=== PATIENT | male | born 1940 | race Caucasian/White ===

== ENCOUNTER 2021-09-02 09:09 | Emergency (ER) | payer MEDICARE ==
[~2021-09-02] VITALS: Ht 175.3 cm; Wt 72.7 kg
--- NOTE | 2021-09-02 09:58 | RAD ---
PROCEDURE: XR CHEST 1V.09/02/2021 9:55 AM REASON FOR STUDY: Reason: soa / Spl. Instructions: / History: . COMPARISON: None. FINDINGS: There are calcifications present bilaterally that may relate to previous granulomatous infe ction. The lungs appear hyperinflated. No acute infiltrate or effusion is seen. Heart size is normal. IMPRESSION: COPD. No apparent acute abnormality. Electronically signed by: Juaquin Bhatti Jr., MD (09/02/2021 9:56 AM) [facility]ENTERBethany
--- NOTE | 2021-09-02 10:09 | ED.ADGEN ---
Past Medical History Additional Past Medical Histor: BPH Past Surgical History: No Surgical History Smoking Status: Former Smoker Alcohol Use: None General Adult EDM: Chief Complaint: SHORTNESS OF BREATH HPI: HPI: Patient is a 81 year old male coming in via EMS from nursing facility. Patient has no complaints and is unsure why he was brought in. Per nursing report he was a little more altered this morning and had an O2 sat of 80% of breakfast. Patient has a history of COPD but does not use daily oxygen. Review of Systems: Review of Systems: All other systems within normal limits except for as noted in the HPI Allergies: Allergies: Allergies Coded Allergies Type Severity Reaction Last Updated Verified No Known Drug Allergies 09/02/21 No Physical Exam: PE: Constitutional: Well developed, well nourished, no acute distress, non-toxic appearance. [] HENT: Normocephalic, atraumatic, bilateral external ears normal, nose normal. [] Eyes: PERRLA, conjunctiva normal, no discharge. [] Neck: No rigidity, supple, no stridor. [] Cardiovascular: Regular rate and rhythm, brisk cap refill [] Lungs & Thorax: Non labored symmetric respirations, no tachypnea or respiratory distress [] Abdomen: Soft, nondistended. Skin: Warm, dry, no erythema, no rash. [] Back: Unremarkable Extremities: No deformities, range of motion grossly intact, no lower extremity edema [] Neurologic: Alert and oriented X 3, no focal deficits noted. [] Psychologic: Affect normal, judgement normal, mood normal. [] Current Patient Data: Labs: Laboratory Tests Test 09/02/21 10:45 09/02/21 11:37 09/02/21 12:25 White Blood Count 8.0 x10^3/uL (4.0-11.0) Red Blood Count 4.64 x10^6/uL (4.30-5.70) Hemoglobin 15.1 g/dL (13.0-17.5) Hematocrit 44.2 % (39.0-53.0) Mean Corpuscular Volume 95 fL (79-100) Mean Corpuscular Hemoglobin 33 pg (25-35) Mean Corpuscular Hemoglobin Concent 34 g/dL (31-37) Red Cell Distribution Width 14.1 % (11.5-14.5) Platelet Count 174 x10^3/uL (140-400) Neutrophils (%) (Auto) 67 % (31-73) Lymphocytes (%) (Auto) 21 % (24-48) L Monocytes (%) (Auto) 9 % (0-9) Eosinophils (%) (Auto) 3 % (0-3) Basophils (%) (Auto) 0 % (0-3) Neutrophils # (Auto) 5.3 x10^3/uL (1.8-7.7) Lymphocytes # (Auto) 1.7 x10^3/uL (1.0-4.8) Monocytes # (Auto) 0.7 x10^3/uL (0.0-1.1) Eosinophils # (Auto) 0.2 x10^3/uL (0.0-0.7) Basophils # (Auto) 0.0 x10^3/uL (0.0-0.2) Sodium Level 144 mmol/L (136-145) Potassium Level 4.1 mmol/L (3.5-5.1) Chloride Level 105 mmol/L (98-107) Carbon Dioxide Level 31 mmol/L (21-32) Anion Gap 8 (6-14) Blood Urea Nitrogen 23 mg/dL (8-26) Creatinine 1.0 mg/dL (0.7-1.3) Estimated GFR (Cockcroft-Gault) 72.1 BUN/Creatinine Ratio 23 (6-20) H Glucose Level 75 mg/dL (70-99) Calcium Level 9.0 mg/dL (8.5-10.1) Total Bilirubin 0.5 mg/dL (0.2-1.0) Aspartate Amino Transferase (AST) 23 U/L (15-37) Alanine Aminotransferase (ALT) 35 U/L (16-63) Alkaline Phosphatase 105 U/L (46-116) Troponin I High Sensitivity 7 ng/L (4-75) YY-Hee-Y-Type Natriuretic Peptide 72 pg/mL (0-449) Total Protein 7.4 g/dL (6.4-8.2) Albumin 3.7 g/dL (3.4-5.0) Albumin/Globulin Ratio 1.0 (1.0-1.7) POC Venous pH 7.32 (7.32-7.42) POC Venous pCO2 44 mmHg (41-51) POC Venous pO2 48 mmHg (20-40) H Venous Blood HCO3 23 mmol/L (24-28) L POC Venous O2 Saturation (Aline) 80 % POC FiO2 21.0 Urine Collection Type Unknown Urine Color Yellow Urine Clarity Clear Urine pH 5.5 (<5.0-8.0) Urine Specific [place] 1.025 (1.000-1.030) Urine Protein Negative mg/dL (NEG-TRACE) Urine Glucose (UA) Negative mg/dL (NEG) Urine Ketones (Stick) Negative mg/dL (NEG) Urine Blood Negative (NEG) Urine Nitrite Negative (NEG) Urine Bilirubin Negative (NEG) Urine Urobilinogen Dipstick 0.2 mg/dL (0.2 mg/dL) Urine Leukocyte Esterase Negative (NEG) Urine RBC 0 /HPF (0-2) Urine WBC 0 /HPF (0-4) Urine Squamous Epithelial Cells Few /LPF Urine Bacteria 0 /HPF (0-FEW) Laboratory Tests 09/02/21 10:45 Laboratory Tests 09/02/21 10:45 Vital Signs: Vital Signs Date Time Temp Pulse Resp B/P (MAP) Pulse Ox O2 Delivery O2 Flow Rate FiO2 09/02/21 11:00 60 18 154/95 (114) 93 Room Air 09/02/21 09:09 97.5 97.5 EKG: EKG: Sinus rhythm, heart rate 70 bpm, normal axis, no ST elevation or depression, no ectopy. [] Heart Score: C/O Chest Pain: No HEART Score for Chest Pain: HEART Score for Chest Pain Response (Comments) Value History Slighlty/Non-Suspicious 0 Age > 65 2 Risk Factors 1 or 2 Risk Factors 1 Troponin < Normal Limit 0 Total 3 Risk Factors: Risk Factors: DM, Current or recent (<one month) smoker, HTN, HLP, family history of CAD, obesity. Risk Scores: Score 0 - 3: 2.5% MACE over next 6 weeks - Discharge Home Score 4 - 6: 20.3% MACE over next 6 weeks - Admit for Clinical Observation Score 7 - 10: 72.7% MACE over next 6 weeks - Early Invasive Strategies Radiology/Procedures: Radiology/Procedures: [facility] [address] [place], [place] [id number] IMAGING REPORT Signed PATIENT: CHARLOTTE JIMÉNEZACCOUNT: [id number] : 1940 LOCATION: ER AGE: 81 SEX: M EXAM STATUS: REG ER ORD. PHYSICIAN: KATHERINE ROSADO MD REASON: soa PROCEDURE: CHEST AP ONLY PROCEDURE: XR CHEST 1V.09/02/2021 9:55 AM REASON FOR STUDY: Reason: soa / Spl. Instructions: / History: . COMPARISON: None. FINDINGS: There are calcifications present bilaterally that may relate to previous granulomatous infection. The lungs appear hyperinflated. No acute infiltrate or effusion is seen. Heart size is normal. IMPRESSION: COPD. No apparent acute abnormality. Electronically signed by: Bentley Bhatti Jr., MD (09/02/2021 9:56 AM) [facility] DICTATED and SIGNED BY: BENTLEY BHATTI Jr, MD DATE: 09/02/21 [id number] [] Course & Med Decision Making: Course & Med Decision Making Pertinent Labs and Imaging studies reviewed. (See chart for details) Patient has no complaints. Is satting in the 90s on room air without any respiratory distress, chest x-ray consistent with COPD but no other abnormalities. [] Dragon Disclaimer: Dragon Disclaimer: This electronic medical record was generated, in whole or in part, using a voice recognition dictation system. Departure Departure Impression: Primary Impression: COPD (chronic obstructive pulmonary disease) Disposition: HOME / SELF CARE / HOMELESS Condition: STABLE Referrals: GUADALUPE DOSHI MD (PCP) Patient Instructions: Chronic Obstructive Pulmonary Disease, [id number] KATHERINE ROSADO MD Sep 02, 2021 10:09
[2021-09-02 10:58] LABS: BASO % 0 % (0-3); EOS # 0.2 x10^3/uL (0.0-0.7); EOS % 3 % (0-3); HEMATOCRIT 44.2 % (39.0-53.0); HEMOGLOBIN 15.1 g/dL (13.0-17.5); LYMPH # 1.7 x10^3/uL (1.0-4.8); LYMPH % 21 % (24-48); MEAN CORPUSCULAR HEMOGLOBIN 33 pg (25-35); MEAN CORPUSCULAR HGB CONC 34 g/dL (31-37); MEAN CORPUSCULAR VOLUME 95 fL (79-100); MONO # 0.7 x10^3/uL (0.0-1.1); MONO % 9 % (0-9); NEUT # 5.3 x10^3/uL (1.8-7.7); NEUT % 67 % (31-73); PLATELET COUNT 174 x10^3/uL (140-400); RED BLOOD COUNT 4.64 x10^6/uL (4.30-5.70); RED CELL DISTRIBUTION WIDTH 14.1 % (11.5-14.5)
[2021-09-02 11:08] LABS: GFR 72.1; POTASSIUM 4.1 mmol/L (3.5-5.1)
[2021-09-02 11:11] LABS: ALBUMIN 3.7 g/dL (3.4-5.0); TOTAL BILIRUBIN 0.5 mg/dL (0.2-1.0); TOTAL PROTEIN 7.4 g/dL (6.4-8.2)
[2021-09-02 11:44] LABS: ISTAT BE VENOUS -3 mmol/L (0-3); ISTAT HCO3 VEN 23 mmol/L (24-28); ISTAT PCO2 VEN 44 mmHg (41-51); ISTAT PH VEN 7.32 (7.32-7.42); ISTAT PO2 VEN 48 mmHg (20-40); ISTAT SAT O2 VEN 80 %; ISTAT TCO2 VEN 24 mmol/L (21-32)
[2021-09-02 12:44] LABS: BILIRUBIN,URINE NEGATIVE (NEG); CLARITY,URINE CLEAR; COLOR,URINE YELLOW; NITRITE,URINE NEGATIVE (NEG); PH,URINE 5.5 (<5.0-8.0); PROTEIN,URINE NEGATIVE (NEG-TRACE); UROBILINOGEN,URINE 0.2 mg/dL (0.2 mg/dL)
[2021-09-02 12:57] LABS: BACTERIA,URINE 0 /HPF (0-FEW); RBC,URINE 0 /HPF (0-2); WBC,URINE 0 /HPF (0-4)
[2021-09-02 15:14] VITALS: BP 165/70
--- NOTE | 2021-09-02 16:38 | EKG ---
[facility] [address] [place] [address] Test Date: 2021-09-02 Test Time: 09:17:01 Pat Name: CHARLOTTE JIMÉNEZ Department: Room: Gender: M Salad Chef: : 1940 Requested By: KATHERINE ROSADO Order Number: [id number] Reading MD: Ck Gusman MD Measurements Intervals [place] Rate: 74 P: 69 ID: [id number] QRS: 81 QRSD: 88 T: 83 QT: 382 QTc: 424 Interpretive Statements SINUS RHYTHM NON-SPECIFIC ST/T CHANGES Electronically Signed On 09-02-2021 20:21:57 GEOLOGICAL SPECIALIST by Ck Gusman MD
== END 2021-09-02 15:26 | disposition home or self-care (01) ==
LOC: ER 09:09
DX: J44.9 Chronic obstructive pulmonary disease, unspecified (principal); Z87.891 Personal history of nicotine dependence
CPT/HCPCS: 36415; 71045; 80053; 81001; 82803; 83880; 84484; 85025; 93005; 99284-25